=== PATIENT | female | born 1965 | race Caucasian/White ===

== ENCOUNTER 2019-08-31 12:36 | Emergency (ER) | payer OTHER, SELFPAY ==
--- NOTE | ~2019-08-31 | XR_ITS ---
EXAMINATION: XR chest 2V DATE: 08/31/2019 12:53 INDICATION: Cough and shortness of breath. TECHNIQUE: Frontal and lateral views of the chest were obtained. COMPARISON: Chest 2 views 05/20/2012 FINDINGS: The chest demonstrates clear lungs without pneumonia, pleural effusion, or pneumothorax. Th e heart size is normal. There is a lap band of the proximal stomach with normal phi angle. Surgical c lips in the right upper quadrant are likely from cholecystectomy. IMPRESSION: 1. No acute cardiopulmonary disease. Reviewed, dictated and finalized at location A. CLERK
[2019-08-31 12:47] VITALS: BP 128/89; PULSE 74; RESP 20; TEMP 36.9; O2SAT 100
--- NOTE | 2019-08-31 13:02 | ED.URI ---
HPI - URI/Sore Throat General Chief Complaint: Upper Respiratory Infection Stated Complaint: fever/cough/SOB History of Present Illness HPI Narrative: This is a 54-year-old female comes in complaining of having this chronic cough that is been going on for the past 3 weeks patient initially was thinking she had a sinus infection seen her primary care provider has been placed on Amoxil but the pain is a went away. 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 Related Data Allergies Allergy/AdvReac Type Severity Reaction Status Date / Time No Known Allergies Allergy Verified 08/31/19 12:38 Review of Systems Review of Systems: Narrative: CONSTITUTIONAL: De reports fever, chills, or sweats. EYES: Denies visual changes, redness, or discharge. ENT: Reports rhinorrhea, congestion, sore throat, or otalgia. CARDIOVASCULAR:Denies chest pain, palpitations, or edema. RESPIRATORY: Reports cough or dyspnea. GASTROINTESTINAL: Denies abdominal pain, nausea, vomiting, or diarrhea. GENITOURINARY: Denies dysuria or hematuria. SKIN:[Denies rash or itching. MUSCULOSKELETAL:Denies back pain, joint pain, or myalgia. NEUROLOGIC: Denies headache, numbness, or weakness. PSYCHIATRIC:Denies anxiety or depression PMFSH Social History Social History Smoking status: Never smoker Alcohol intake: current Comments At time as signature, I have reviewed and agree with nursing past medical, social, surgical and family history. Please see nursing chart for further information. There is no relevant family history pertinent to the presenting complaint. Exam Narrative: Exam Narrative: GENERAL:Well-appearing, well-nourished, and in no acute distress. HEAD:Normocephalic, atraumatic. EYES: PERRLA and EOMI. ENT: Nares clear, no rhinorrhea or epistaxis. Mucous membranes moist. tm bulging pharyngeal erythema NECK: Supple. CHEST: Clear to auscultation. No respiratory distress. HEART: Regular rate and rhythm. No murmur heard. Normal peripheral pulses. ABDOMEN: Soft, nontender, nondistended, normal active bowel sounds. EXTREMITIES: Normal range of motion. No edema. SKIN: Warm, dry, no rash. NEURO: No focal deficits. Alert and oriented x3. Course Vital Signs Vital signs: Vital Signs Temperature 98.4 F 08/31/19 12:47 Pulse Rate 74 08/31/19 12:47 Respiratory Rate 20 08/31/19 12:47 Blood Pressure 128/89 08/31/19 12:47 Pulse Oximetry 100 08/31/19 12:47 Temperature 98.4 F 08/31/19 12:47 Pulse Rate 74 08/31/19 12:47 Respiratory Rate 20 08/31/19 12:47 Blood Pressure 128/89 08/31/19 12:47 Pulse Oximetry 100 08/31/19 12:47 MDM - URI/Sore Throat Lab Data Labs: Influenza A Screen Negative Reference Range: Negative Influenza B Screen Negative Reference Range: Negative Discharge Plan Discharge Clinical Impression: Upper respiratory infection Patient Disposition: Home, Self-Care Condition: Stable Instructions: Antibiotic Form, Upper Respiratory Infection (ED), Acute Bronchitis (ED) Prescriptions: New benzonatate [Tessalon Perles] 100 mg capsule 100 mg PO BID PRN (Reason: cough) Qty: 20 RF: 0 albuterol sulfate 90 mcg/actuation HFA aerosol inhaler 1 inhalation INHALATION QID PRN (Reason: shortness of breath or wheezing) Qty: 8.5 RF: 0 No Action zolpidem [Ambien] 10 mg tablet 10 mg PO ONCE PRN (Reason: insomnia) Qty: 30 RF: 1 Follow-up/Referrals: Brandon Marte MD [Primary Care Provider] - Time of Disposition: 14:00 Discharge Date/Time: 08/31/19 14:02
== END 2019-08-31 14:02 | disposition home or self-care (01) ==
PROVIDERS: Emergency Provider Nurse Practitioner Family; PCP Family Medicine
DX: J06.9 Acute upper respiratory infection, unspecified (principal)
CPT/HCPCS: 71046; 87804; 99213; G0463

== ENCOUNTER 2022-03-11 14:18 | Emergency (ER) | payer OTHER, SELFPAY ==
--- NOTE | ~2022-03-11 | XR_ITS ---
EXAMINATION: [id number] INDICATION: Right-sided chest pain TECHNIQUE: A frontal view of the chest and 3 views of the right ribs were obtained. COMPARISON: 08/31/2019 FINDINGS: The lungs are free of acute opacities. No pleural effusion or pneumothorax. The cardiomedia stinal silhouette is normal. A gastric lap band is noted. Surgical clips in the right upper quadrant are likely from prior cholecystectomy. No displaced rib fracture is identified. IMPRESSION: 1. No acute cardiopulmonary abnormality or evidence of displaced rib fracture. Reviewed, dictated and finalized at location B.
--- NOTE | 2022-03-11 14:21 | ED.GENADULT ---
HPI - General Adult General Chief complaint: Back Pain/Injury Stated complaint: Rt side pain History of Present Illness HPI narrative: 56 y/o female. PMHx KOBY. Presents to [facility] today with acute complaints of RT lower chest wall/rib tenderness, worsening in the past 5 days. Client tells me she had been OOT on vacation, and was 'swimming a lot' prior to manifestation onset. She denies falls or direct chest wall trauma. Pain is described as 'sharp', and worse with movement, bending, laughing, or cough. -No fevers. No rash. -Denies dyspnea, radiation, palpitations, edema. -No hemoptysis. -Non-smoker. -Denies abdominal pain, N/V/D or other GI concerns. Mildly relieved w/home OTC remedies. No additional acute c/o upon PE. Related Data Allergies Allergy/AdvReac Type Severity Reaction Status Date / Time No Known Allergies Allergy Verified 03/11/22 14:20 Review of Systems Review of Systems: CONSTITUTIONAL: Denies fever, chills, sweats. EYES: Denies visual changes, redness, discharge. ENT: Denies rhinorrhea, congestion, sore throat, otalgia. CARDIOVASCULAR: Denies chest pain, palpitations, edema. RESPIRATORY: Denies dyspnea, wheezing, cough GASTROINTESTINAL: Denies abdominal pain, nausea, vomiting, diarrhea. GENITOURINARY: Denies dysuria, hematuria, abnormal discharge SKIN: Denies rash or itching. MUSCULOSKELETAL: RT lower chest wall/rib pain. Denies additional joint pain, or myalgia. NEUROLOGIC: Denies numbness, or focal weakness. PSYCHIATRIC: Denies anxiety or depression. [facility] Family History Family History Father Hypertension Family history of lung cancer, Onset Age: 75 Mother Hypertension Family history of thyroid disease Diabetes mellitus Family history of rheumatoid arthritis Grandparent Family history of malignant neoplasm of breast, Onset Age: 90 Carcinoma of colon Other Family history of arthritis Family history of malignant neoplasm Family history of premature coronary heart disease Social History Social History Alcohol intake: current Exam Narrative: GENERAL: This is a well-nourished, well-developed adult, in no apparent distress. HEAD: normocephalic. EYES: Sclera clear/white. EARS: External ears normal. NOSE: External nose normal. THROAT: Mucous membranes moist. NECK: Neck supple, non-tender. CARDIOVASCULAR: Regular rate and rhythm without murmurs, gallops, or rubs. No edema. RESPIRATORY: Clear to auscultation. Breath sounds equal bilaterally. No wheezes, rales, or rhonchi. With reproducible RT lower chest wall tenderness overlying intercostal spaces 9-12 respectively. No crepitus, no chest wall flailing or deformity. No vesicular lesions or rash. Chest wall rises symmetrically. GASTROINTESTINAL: Abdomen soft, non-tender, nondistended. Bowel sounds are active. No guarding. No signs of acute abdomen are appreciated. SKIN: warm, intact with no suspicious lesions or rash, good texture and turgor. NEURO: Alert, active, and age appropriate. No focal neurologic deficits. Course Course Level of Care: Express Care Visit Vital Signs Vital signs: Vital Signs Temperature 36.6 C 03/11/22 14:28 Pulse Rate 76 03/11/22 14:28 Respiratory Rate 18 03/11/22 14:28 Blood Pressure 134/68 03/11/22 14:28 Pulse Oximetry 99 03/11/22 14:28 Oxygen Delivery Room Air 03/11/22 14:28 Temperature 36.6 C 03/11/22 14:28 Pulse Rate 76 03/11/22 14:28 Respiratory Rate 18 03/11/22 14:28 Blood Pressure 134/68 03/11/22 14:28 Pulse Oximetry 99 03/11/22 14:28 Oxygen Delivery Room Air 03/11/22 14:28 Medical Decision Making [facility] Narrative Medical decision making narrative: -Reproducible RT lower chest wall tenderness: Suspect atraumatic costochondritis 2/2 recent reports of repetitive upper extremity movements w/swimming on v
[2022-03-11 14:28] VITALS: BP 134/68; PULSE 76; RESP 18; TEMP 36.6; O2SAT 99
== END 2022-03-11 14:56 | disposition home or self-care (01) ==
PROVIDERS: Emergency Provider Nurse Practitioner Adult Health; PCP Family Medicine
DX: M94.0 Chondrocostal junction syndrome [Tietze] (principal)
CPT/HCPCS: 71101; 99213; G0463

== ENCOUNTER 2022-04-17 09:44 | Outpatient (CLI) | payer OTHER, SELFPAY ==
--- NOTE | ~2022-04-17 | US_ITS ---
EXAMINATION: US venous doppler LE RT DATE: 04/17/2022 10:25 INDICATION: Right lower limb swelling TECHNIQUE: Martins scale images without and with compression and Doppler images of the right lower extre mity veins were obtained. COMPARISON: None FINDINGS: The right common femoral vein, profunda femoral vein, femoral vein, popliteal vein, peronea l trunk, posterior tibial veins, and greater saphenous vein are patent. No specific sonographic corre late is identified for the area of pain in the ankle. IMPRESSION: 1. Patent right lower extremity veins. No evidence of deep venous thrombosis. Reviewed, dictated and finalized at location B.
== END 2022-04-17 09:45 | disposition home or self-care (01) ==
PROVIDERS: PCP Physician Assistant; Visit Provider Physician Assistant
DX: M79.606 Pain in leg, unspecified (principal); M79.89 Other specified soft tissue disorders
CPT/HCPCS: 93971

== ENCOUNTER 2022-05-14 16:25 | Outpatient (CLI) | payer OTHER, SELFPAY ==
--- NOTE | ~2022-05-14 | CT_ITS ---
EXAMINATION: CT abdomen pelvis wo con DATE: 05/14/2022 16:49 INDICATION: Left flank pain since 4 days ago. History of multiple kidney stones and LAP-BAND surgery TECHNIQUE: Computed tomography (CT) of the abdomen and pelvis was performed without intravenous contr ast. Automated exposure control and iterative reconstruction technique were employed. Exam dose: 204 .22 mGy-cm total exam DLP. COMPARISON: 09/15/2015 CT abdomen pelvis FINDINGS: The lung bases are clear. Heart size is within normal limits. No pericardial or pleural eff usion. Lap band device is noted. Status post cholecystectomy. No bile duct or pancreatic duct dilatation. No hepatic, splenic, pancrea tic, and adrenal or renal space-occupying mass lesion is evident on this limited noncontrast examinat ion. There is an 8.4 x 13.8 mm calculus at the left ureteropelvic junction, with attenuation of 1175 Houns field units. There is mild left hydronephrosis. No other urinary tract calculus is noted. Status post hysterectomy. The urinary bladder is unremarkable. There is atherosclerotic calcification of the abdominal aorta and iliac arteries. No abdominal aortic aneurysm. Diverticulosis of the sigmoid and descending colon and splenic flexure; no CT evidence of diverticuli tis. No evidence of appendicitis. No bowel obstruction or intraperitoneal free air. Grade 1 anterolisthesis at L4-5 due to degenerative change at the apophyseal joints. No suspicious os teolytic or osteoblastic lesions are noted. IMPRESSION: 8.4 x 13.8 mm left ureterovesical junction calculus with mild left hydronephrosis Diverticulosis of left colon; no CT evidence of diverticulitis Status post cholecystectomy Status post hysterectomy Lap band Reviewed, dictated and finalized at Location A. Reviewed, dictated and finalized at location B. OR GROUP MANAGER
== END 2022-05-14 16:26 | disposition home or self-care (01) ==
PROVIDERS: PCP Internal Medicine; Visit Provider Clinical Nurse Specialist
DX: N20.0 Calculus of kidney (principal); Z90.49 Acquired absence of other specified parts of digestive tract; K57.30 Diverticulosis of large intestine without perforation or abscess without bleeding
CPT/HCPCS: 74176

== ENCOUNTER 2022-05-14 17:19 | Observation (INO) | payer OTHER, SELFPAY ==
[2022-05-14] VITALS (8 sets, daily range): BP systolic 119–155; BP diastolic 65–96; PULSE 56–78; RESP 11–34; TEMP 36.6; O2SAT 98–100; BMI 24.3
--- NOTE | ~2022-05-14 | XR_ITS ---
EXAMINATION: XR retrograde pyelo w/stent LT INDICATION: Left stent placement TECHNIQUE: 89 intraoperative fluoroscopic images are submitted for review. Total fluoroscopic time wa s 31.7 seconds. COMPARISON: KUB from yesterday FINDINGS: Retropyelogram demonstrates a stone at the left ureteropelvic junction. There is mild hydro nephrosis. A left internal ureteral stent is placed in expected position. Changes of gastric lap band surgery are noted. IMPRESSION: 1. Left-sided stone with placement of a left internal ureteral stent in expected position. Please ref er to procedure note for full details. Reviewed, dictated and finalized at location F. AND GROUNDS SUPERVISOR IMPRESSION: 1. Left-sided stone with placement of a left internal ureteral stent in expecte d position. Please refer to procedure note for full details.
--- NOTE | ~2022-05-14 | XR_ITS ---
EXAMINATION: XR abdomen/kub 1V INDICATION: Kidney stones TECHNIQUE: Supine views of the abdomen were obtained on 2 radiographs. COMPARISON: CT from today FINDINGS: A 1.4 cm stone projects in the expected location of the left ureteropelvic junction. A mode rate volume of colonic stool is present. Changes of gastric lap band surgery are noted. There are cho lecystectomy clips. There is elevation of the left hemidiaphragm. IMPRESSION: 1. 1.4 cm at the left ureteropelvic junction. Reviewed, dictated and finalized at location F. OR AGRICULTURAL ASSISTANT
[2022-05-14 17:42] LABS: Basophils Percent Auto 0.6 % (0.2-1.2); Eosinophils Absolute Auto 0.1 K/mm3 (0-0.3); Eosinophils Percent Auto 2.2 % (0-4.4); Hematocrit 41.9 % (37.0-47.0); Immature Granulocyte Absolute 0.02 K/mm3 (0.00-0.031); Immature Granulocyte Percent A 0.3 % (0-0.5); Lymphocytes Absolute Auto 2.09 K/mm3 (0.9-3.2); Lymphocytes Percent Auto 33.4 % (18.3-44.2); Mean Corpuscular HGB Conc 33.4 g/dl (32-36); Mean Corpuscular Hemoglobin 32.6 pg (26-34); Mean Corpuscular Volume 97.4 fl (80-100); Mean Platelet Volume 10.4 fl (7.4-10.4); Monocytes Absolute Auto 0.6 K/mm3 (0.1-0.6); Monocytes Percent Auto 9.7 % (2.6-8.5); Neutrophils Absolute Auto 3.4 K/mm3 (1.3-6.7); Neutrophils Percent Auto 53.8 % (45.5-73.1); Platelet Count Result 253 k/mm3 (150-375); Red Cell Distribution Width 11.6 % (11.5-14.5); White Blood Count 6.3 K/mm3 (4.5-10.0)
[2022-05-14 17:55] LABS: Alanine Aminotransferase 17 U/L (6-35); Albumin Level 4.4 g/dL (3.5-5.1); Alkaline Phosphatase 65 U/L (38-126); Anion Gap 10 mmol/L (8-16); Aspartate Amino Transferase 25 U/L (14-36); Bilirubin,Total 0.5 mg/dL (0.2-1.3); Blood Urea Nitrogen 16 mg/dL (7-17); Calcium 9.4 mg/dL (8.4-10.2); Carbon Dioxide 28 mmol/L (22-30); Chloride 101 mmol/L (98-107); Estimated CRCL calculation 73 ml/min; Estimated Glomerular Filt Rate > 60; Glucose 93 mg/dL (65-110); Potassium 4.1 mmol/L (3.4-5.0); Sodium 139 mmol/L (137-145)
[2022-05-14] MEDS: SODIUM CHLORIDE 0.9% IV 1,000 ML 999 ML IV CONT (20:38)
--- NOTE | 2022-05-14 21:28 | ED.GENADULT ---
HPI - General Adult General Chief complaint: Urogenital-Female Stated complaint: kidney stone Time Seen by Provider: 05/14/22 20:07 Source: RN notes reviewed History of Present Illness HPI narrative: Patient presents emergency department from home for left-sided flank and abdominal pain. Patient states symptoms again 4 days ago. The pain is located in the left side of the abdomen and radiates around to the left flank described as sharp and stabbing in nature. States has been associate with nausea. States that she went to her PCP today and had a CT scan that showed a kidney stone and was recommended come the ER for further evaluation. She denies any fevers or chills chest pain states she is not take any medication for the symptoms today Related Data Allergies Allergy/AdvReac Type Severity Reaction Status Date / Time No Known Allergies Allergy Verified 05/14/22 15:31 Review of Systems Review of Systems: Gen.: Denies fevers or chills ENT: Denies congestion Respiratory: Denies shortness of breath or cough CV: Denies chest pain or palpitations GI: See HPI denies burning, urgency, frequency or hematuria Musculoskeletal: Denies back pain or muscle pain Neuro: Denies numbness, tingling, weakness or focal weakness Skin: Denies rash Except as documented, all other systems reviewed and negative [facility] Past Medical History Medical History Renal stone Patient reports having lithotripsy procedures over 17 times Surgical History Surgical History H/O shoulder surgery (~06/11/21) Family History Family History Father Hypertension Family history of lung cancer, Onset Age: 75 Mother Hypertension Family history of thyroid disease Diabetes mellitus Family history of rheumatoid arthritis Grandparent Family history of malignant neoplasm of breast, Onset Age: 90 Carcinoma of colon Other Family history of arthritis Family history of malignant neoplasm Family history of premature coronary heart disease Social History Social History Social History: Caffeine-coffee Smoking status: Never smoker Alcohol intake: current Alcohol use details: social Exam Narrative: APPEARANCE: No acute distress, nontoxic, resting in bed HEENT: Normocephalic, atraumatic, OMM RESPIRATORY: No respiratory distress, clear to auscultation bilaterally with no rhonchi wheezing or rales CARDIOVASCULAR: RRR s murmur ABDOMINAL: Soft nondistended tender palpation left upper quadrant left lower quadrant no tenderness right upper quadrant right lower quadrant no rebound or guarding, left flank tenderness MUSCULOSKELETAl: Moves all extremities. No clubbing, cyanosis or edema. NEURO: Awake and alert. Following commands, speech normal, no focal deficits SKIN:: Warm, dry. Normal Color PSYCHIATRIC: Normal affect/mood Course Course Emergency Course: Reviewed outpatient CT scan from today showing a left 8 x 13 mm UPJ stone Discussed with urology Dr. Latif agrees with plan for Rocephin with admission with plan for stent tomorrow Discussed with Dr. Hannah agrees with admission Discussed with patient and family results of workup and diagnosis. Discussed need for admission. Patient and family understand and agree to current treatment plan Vital Signs Vital signs: Vital Signs Temperature 97.9 F 05/14/22 17:22 Pulse Rate 69 05/14/22 17:22 Respiratory Rate 16 05/14/22 17:22 Blood Pressure 150/83 H 05/14/22 17:22 Pulse Oximetry 100 05/14/22 17:22 Oxygen Delivery Room Air 05/14/22 17:22 Temperature 97.9 F 05/14/22 17:22 Pulse Rate 61 05/14/22 21:16 Respiratory Rate 16 05/14/22 21:16 Blood Pressure 119/65 05/14/22 21:16 Pulse Oximetry 100 05/14/22 21:16 Oxygen Delivery Room Air 05/14/22
[2022-05-14 21:38] LABS: Appearance Urine Clear (Clear); Bilirubin Urine Negative (Negative); Blood Urine 2+ (Negative); Color Urine Yellow (Yellow); Glucose Urine UA Negative (Negative); Ketones Urine 1+ mg/dL (Negative); Leukocyte Esterase Ur 2+ LEU/UL (Negative); Nitrate Urine Negative (Negative); Protein Urine Negative (Negative); Specific Grav Ur 1.025 (1.001-1.035); Urobilinogen Urine 0.2 mg/dL (<2.0)
[2022-05-14 21:39] LABS: SARS-CoV-2 RNA PCR Negative
[2022-05-14 21:41] LABS: Mucus Urine Rare /lpf; RBC Urine >75 /hpf (0-2); Squamous Epithelial Cell Urine Rare /hpf (Few); WBC Urine 31-50 /hpf
[2022-05-14 21:42] LABS: Add Urine Microscopic? YES
--- NOTE | 2022-05-14 22:07 | PM.IMHP ---
H&P: HPI History of Present Illness Date/Time: 05/14/22 22:07 Chief Complaint: Left flank pain, abdominal pain, dysuria Narrative: Patient is a 57-year-old female with past medical history recurrent uric acid kidney stones and insomnia presents to ED with complaints of left-sided flank pain and abdominal pain. Symptom onset was 4 days ago. Patient states she has recurrent kidney stones and has had lithotripsy 17x. She previously was following at [facility] and kidney stones are found to be uric acid stones. Patient had been on allopurinol in the past but no longer recommended. She has been dealing with kidney stones for many years and over last couple months patient has had small kidney stones with past without issues. Today she saw her PCP who has ordered a CT scan finding a 1.4cm kidney stone in left UVJ. She was given Rx for nitrofurantoin with dysuria. Because of the size of kidney stone she was advised to go to the ED for further evaluation. In the ED: Patient's labs are stable, patient was given IV Rocephin antibiotic. Urology Dr. Tee was consulted and plan will be cystoscopy with stent placement tomorrow and possible stone removal/lithotripsy. Patient admitted for observation for left-sided nephrolithiasis. Review of Systems Review of Systems: Constitutional: No Fever, No Chills, No Night Sweats, No Fatigue, No Malaise ENT/Mouth: No Hearing Changes, No Ear Pain, No Nasal Congestion, No Sinus Pain, No Hoarseness, No sore throat, No Rhinorrhea, No Swallowing Difficulty Eyes: No Eye Pain, No Redness, No Vision Changes Cardiovascular: No Chest Pain, No Palpitations, No Dyspnea on Exertion, No Orthopnea, No Claudication, No Edema Respiratory: No Cough, No Sputum, No Wheezing, No Shortness of Breath Gastrointestinal: No Nausea, No Vomiting, No Diarrhea, No Constipation, No Heartburn, No Hematochezia, No Melena. Endorses abdominal pain and back pain Genitourinary: Endorses dysuria, pain on urination,fullness Musculoskeletal: No Arthralgias, No Myalgias, No Joint Swelling, No Joint Stiffness, No Back Pain Skin: No Skin Lesions, No Pruritis, No Hair Changes Neuro: No Weakness, No Numbness, No Paresthesias, No Loss of Consciousness, No Syncope, No Dizziness, No Headache Psych: No Anxiety/Panic, No Depression, No Insomnia Heme: No Bruising, No Bleeding Lymph: No Adenopathy Endocrine: No Polyuria, No Polydipsia, No Temperature Intolerance [facility] Past Medical History Medical History (Updated 05/14/22 @ 22:24 by Rigo Hannah DO) Adjustment disorder with anxiety Insomnia Renal stone Patient reports having lithotripsy procedures over 17 times. history of uric stones Surgical History Surgical History H/O shoulder surgery (~06/11/21) History of cholecystectomy History of hysterectomy History of laparoscopic adjustable gastric banding Family History Family History Father Hypertension Family history of lung cancer, Onset Age: 75 Mother Hypertension Family history of thyroid disease Diabetes mellitus Family history of rheumatoid arthritis Grandparent Family history of malignant neoplasm of breast, Onset Age: 90 Carcinoma of colon Other Family history of arthritis Family history of malignant neoplasm Family history of premature coronary heart disease Social History Social History Social History: Caffeine-coffee Smoking status: Never smoker Alcohol intake: current Alcohol use details: social Meds Home Medications and Allergies Home Medications Medication Instructions Recorded Confirmed Type fluoxetine 10 mg capsule 10 mg PO DAILY #90 caps 08/18/21 04/16/22 Rx trazodone 50 mg tablet 150 mg PO DAILY #90 tabs 11/18/21 04/16/22 Rx zolpidem 10 mg tablet (Ambien) 10 mg PO .qhs PRN insomnia #90 tabs 04/16/22
[2022-05-14] MEDS: MORPHINE SULFATE (*CRX) 4 MG/ML INJ IV PUSH (22:25)
[2022-05-14] MEDS: ONDANSETRON INJ 4 MG/2 ML VIAL IV PUSH (22:25)
--- NOTE | 2022-05-14 23:25 | ADMGEN ---
This patient, Carmen Scott, was admitted to Medical Room 261-01. Patient/family oriented to hospital policies and general routines including ID bracelet, bed and alarms, visiting hours, pain management, procedures, bathroom and other care routines, personal items, smoking policy, room service/diet, and visiting hours. Information on how to activate the Rapid Response Team has been discussed. Patient/Family are encouraged to report perceived risks to care and to ask questions if they do not understand what they are told or what they should do.
[2022-05-14] MEDS: SODIUM CHLORIDE 0.9% IV 1,000 ML 125 ML IV CONT (23:28)
[2022-05-14] MEDS: ZOLPIDEM TARTRATE (*CRX) 5 MG TABLET PO (23:49)
[2022-05-14] MEDS: traZODone HCL 50 MG TABLET 150 MG PO (23:50)
[2022-05-15] VITALS (11 sets, daily range): BP systolic 113–156; BP diastolic 56–80; PULSE 52–73; RESP 8–18; TEMP 36.2–36.6; O2SAT 94–98
[2022-05-15] MEDS: MORPHINE SULFATE (*CRX) 4 MG/ML INJ IV PUSH (05:31)
[2022-05-15 05:56] LABS: INR 1.1; Prothrombin Time 13.6 Seconds (11.1-14.7)
[2022-05-15 06:22] LABS: Basophils Percent Auto 0.8 % (0.2-1.2); Eosinophils Absolute Auto 0.1 K/mm3 (0-0.3); Eosinophils Percent Auto 2.7 % (0-4.4); Hematocrit 35.9 % (37.0-47.0); Hemoglobin 12.1 g/dL (12.0-15.0); Immature Granulocyte Absolute 0.02 K/mm3 (0.00-0.031); Immature Granulocyte Percent A 0.4 % (0-0.5); Lymphocytes Absolute Auto 1.67 K/mm3 (0.9-3.2); Lymphocytes Percent Auto 34.4 % (18.3-44.2); Mean Corpuscular HGB Conc 33.7 g/dl (32-36); Mean Corpuscular Hemoglobin 32.6 pg (26-34); Mean Corpuscular Volume 96.8 fl (80-100); Monocytes Absolute Auto 0.5 K/mm3 (0.1-0.6); Monocytes Percent Auto 9.9 % (2.6-8.5); Neutrophils Absolute Auto 2.5 K/mm3 (1.3-6.7); Neutrophils Percent Auto 51.8 % (45.5-73.1); Platelet Count Result 208 k/mm3 (150-375); Red Blood Count 3.71 M/mm3 (4.2-5.4); Red Cell Distribution Width 11.6 % (11.5-14.5); White Blood Count 4.9 K/mm3 (4.5-10.0)
[2022-05-15 06:50] LABS: Alanine Aminotransferase 14 U/L (6-35); Albumin Level 3.4 g/dL (3.5-5.1); Alkaline Phosphatase 51 U/L (38-126); Anion Gap 3 mmol/L (8-16); Aspartate Amino Transferase 24 U/L (14-36); Bilirubin,Total 0.5 mg/dL (0.2-1.3); Blood Urea Nitrogen 12 mg/dL (7-17); Calcium 8.4 mg/dL (8.4-10.2); Carbon Dioxide 27 mmol/L (22-30); Chloride 108 mmol/L (98-107); Estimated CRCL calculation 73 ml/min; Estimated Glomerular Filt Rate > 60; Glucose 92 mg/dL (65-110); Potassium 4.1 mmol/L (3.4-5.0); Sodium 138 mmol/L (137-145)
[2022-05-15] MEDS: SODIUM CHLORIDE 0.9% IV 1,000 ML 125 ML IV CONT ×2 (08:13→20:44)
[2022-05-15] MEDS: ONDANSETRON INJ 4 MG/2 ML VIAL IV PUSH ×2 (08:13→18:48)
[2022-05-15] MEDS: ACETAMINOPHEN 325 MG TABLET 650 MG PO ×2 (08:14→18:48)
--- NOTE | 2022-05-15 08:44 | PM.IMPN ---
Progress Note: A&P Assessment and Plan (1) Kidney stone on left side: Code(s): N20.0 - Calculus of kidney Status: Acute Assessment and Plan: 1.4cm left stone with mild left hydronephrosis. Hx 17 urology procedures in past. States has had ureteral stents in the past. No stones last 6 years. States inital stones found to be uric acid, but subsequent eval other etiology - no longer on allopurinol. Current renal function wdl. - Urology has seen pt. this am, procedure this afternoon. Appreciate recs. - NPO last night, IVF with 125 ml/hr nacl. - Pain control with tylenol, norco, and/or morphine prn. - Urine with +leuk/wbc - on rocephin which will continue. Culture pending. (2) Insomnia: Qualifiers: Insomnia type: unspecified Qualified Code(s): G47.00 - Insomnia, unspecified Code(s): G47.00 - Insomnia, unspecified Status: Acute Assessment and Plan: Home trazodone to continue. (3) Nausea: Code(s): R11.0 - Nausea Status: Acute Assessment and Plan: - Cont. zofran. (4) Headache: Code(s): R51.9 - Headache, unspecified Status: Acute Assessment and Plan: - Cont. acetaminophen, received dose this am. Time Spent With Patient Time with patient: 15 - 25 minutes Subjective Date/time seen: 05/15/22 08:20 Interval history: Patient states pain left flank this am, headache, and nausea w/o vomiting, but is having dry heaves. Review of Systems Constitutional: Constitutional: Reports no additional constitutional complaints Cardiovascular: Cardiovascular: Reports no additional cardiovascular complaints Respiratory: Respiratory: Reports no additional respiratory complaints Gastrointestinal: Gastrointestinal: Reports nausea Musculoskeletal: Musculoskeletal: Reports no additional musculoskeletal complaints Neurologic: Reports system reviewed and no additional complaints, except as documented Exam Const: General: uncomfortable Other: Occasional dry heaves Eyes: Sclera: sclerae normal Neck: Neck: supple Resp: Effort & Inspection: normal respiratory effort Auscultation: clear to auscultation bilaterally Cardio: Rate: regular rate Rhythm: regular rhythm Skin: General skin exam: normal color and no rashes or lesions noted Neuro: Speech: normal speech Extrem: General: normal to inspection Psych: Mental Status: mental status grossly normal Affect: normal affect Objective Data Vital Signs Vital Signs: Vital Signs - 24 hr 05/14/22 17:22 05/14/22 20:34 05/14/22 20:45 Temperature 97.9 F Pulse Rate 69 64 56 L Respiratory Rate 16 11 L 12 Blood Pressure 150/83 H Pulse Oximetry 100 100 100 Oxygen Delivery Room Air 05/14/22 20:46 05/14/22 21:01 05/14/22 21:16 Temperature Pulse Rate 68 58 L 61 Respiratory Rate 34 H 14 16 Blood Pressure 132/74 124/75 119/65 Pulse Oximetry 99 100 100 Oxygen Delivery 05/14/22 23:55 05/14/22 23:37 05/15/22 07:43 Temperature 97.8 F 97.8 F Pulse Rate 78 58 L 60 Respiratory Rate 18 16 16 Blood Pressure 130/80 155/96 H 113/66 Pulse Oximetry 98 100 97 Oxygen Delivery Intake/Output Intake/Output: Intake & Output 05/12/22 05/13/22 05/14/22 05/15/22 23:59 23:59 23:59 23:59 Intake Total 1150 1300 Output Total 400 Balance 1150 900 Meds/Results Medications: Active Medications Generic Name Dose Route Start Last Admin Trade Name Freq PRN Reason Stop Dose Admin Acetaminophen 650 mg 05/14/22 22:11 05/15/22 08:14 Acetaminophen 325 Mg Tablet PO 650 mg Q4H PRN Administration Mild Pain (1-3) or Fever Hydrocodone Bitart/Acetaminophen 1 tab 05/14/22 22:11 Hydrocodone/Acetaminophen (*Crx) 5-325 Mg Tablet PO Q4H PRN Moderate Pain (4-6) Al Hydrox/Mg Hydrox/Simethicone 30 ml 05/14/22 22:11 Mag Hydrox/Al Hydrox/Simeth 30 Ml Udc PO QID PRN Dyspepsia Ceftriaxone Sodium/Dextrose 1 gm in 50 mls @ 100 mls/h
--- NOTE | 2022-05-15 09:14 | WPDURCON ---
Assessment and Plan Assessment and plan (1) Left ureteral stone: Code(s): N20.1 - Calculus of ureter Status: Acute Assessment and Plan: Cystoscopy with left ureteral stent placement today. Left ESWL in the future, once her infection has been thoroughly treated Urology Consult Note HPI Date Seen: 05/15/22 Requesting Physician: Carline Griffin PA-C Primary Care Provider: Rudolph Llanes DO Consult Narrative Narrative: Carmen Scott is a 57 year old female Wary well known to me with a history of uric a urinary tract infection and recurrent urolithiasis in the past. I have not seen her for several years but she was admitted through the emergency department with a one-week history of progressively severe left flank pain without fevers chills nausea vomiting or gross hematuria. Imaging demonstrates an obstructing 13 mm calcified left proximal ureteral stone. Her urine shows some white blood cells and leukocyte esterase suggesting a possible infection. In light of that elected to admit for hydration analgesics with plans for left ureteral stent placement now in left ESWL in the future. It is risk of ureteral stent placement including persistent or worsening infection, irritable voiding, hematuria and ureteral injury. Review of Systems Cardiovascular: Cardiovascular: Denies chest pain, Denies lightheadedness, Denies palpitations and Denies dyspnea Respiratory: Respiratory: Denies dyspnea Gastrointestinal: Gastrointestinal: Denies diarrhea, Denies nausea and Denies vomiting Genitourinary: Genitourinary: Denies hematuria and Denies dysuria Endocrine: Endocrine: Denies palpitations PMFSH Past Medical History Medical History (Updated 05/15/22 @ 09:16 by Bill Pal MD) Adjustment disorder with anxiety Insomnia Renal stone Patient reports having lithotripsy procedures over 17 times. history of uric stones Surgical History Surgical History H/O shoulder surgery (~06/11/21) History of cholecystectomy History of hysterectomy History of laparoscopic adjustable gastric banding Family History Family History Father Hypertension Family history of lung cancer, Onset Age: 75 Mother Hypertension Family history of thyroid disease Diabetes mellitus Family history of rheumatoid arthritis Grandparent Family history of malignant neoplasm of breast, Onset Age: 90 Carcinoma of colon Other Family history of arthritis Family history of malignant neoplasm Family history of premature coronary heart disease Social History Social History Social History: Caffeine-coffee Smoking status: Never smoker Alcohol intake: current Drinks per week: 1 Alcohol use details: social Substance use: never Lack of Transportation: No Lack of Food: Never True Current Housing: I Have Housing Concerned About Future Housing: No Difficulty Paying Gas/Electric Bills: No Difficulty Paying for Meds: No Currently Unemployed: No Education: Associate Degree Difficulty w/ Childcare or Family Care: No Spiritual care concerns: No Meds Home Medications and Allergies Home Medications Medication Instructions Recorded Confirmed Type fluoxetine 10 mg capsule 10 mg PO DAILY #90 caps 08/18/21 05/14/22 Rx trazodone 50 mg tablet 150 mg PO DAILY #90 tabs 11/18/21 05/14/22 Rx zolpidem 10 mg tablet (Ambien) 10 mg PO .qhs PRN insomnia #90 tabs 04/16/22 05/14/22 Rx nitrofurantoin 100 mg PO Q12H 5 days #10 caps 05/14/22 05/14/22 Rx monohydrate/macrocrystals 100 mg capsule (Macrobid) Allergies Allergy/AdvReac Type Severity Reaction Status Date / Time No Known Allergies Allergy Verified 05/14/22 15:31 Vital Signs Vital Signs - 24 hr 05/14/22 17:22 05/14/22 20:34 05/14/22 20:45 Temp
--- NOTE | 2022-05-15 09:18 | WPDHPUPDATE1 ---
History and Physical Update Update Date/Time: 05/15/22 09:18 History and Physical has been reviewed, including an updated exam of the patient. There are NO changes in the patient's condition. Risks, benefits, and alternatives have been discussed and questions answered. Patient agrees to proceed with procedure.
--- NOTE | 2022-05-15 10:45 | WPDHPUPDATE1 ---
History and Physical Update Update Date/Time: 05/15/22 10:45 History and Physical has been reviewed, including an updated exam of the patient. There are NO changes in the patient's condition. Risks, benefits, and alternatives have been discussed and questions answered. Patient agrees to proceed with procedure.
--- NOTE | 2022-05-15 11:06 | WPDANESEPPF ---
Anes - Initial Pre Proc Eval Procedure: Operation Date: 05/15/22 14:30 Proposed Procedures p Cystoscopy, Left Stent Placement - Bill Pal MD Date/Time: 05/15/22 11:06 Surgeon: Carline Griffin PA-C Pre Op Diagnosis: Left kidney stone, UTI Patient Data Age: 57 Gender: F Height: 1.7 m Weight: 70.4 kg Last Vital Signs Temp 36.6 C 05/15/22 07:43 Pulse 60 05/15/22 07:43 Resp 16 05/15/22 07:43 BP 113/66 05/15/22 07:43 Pulse Ox 97 05/15/22 07:43 O2 Del Method Room Air 05/14/22 17:22 Allergies Allergy/AdvReac Type Severity Reaction Status Date / Time No Known Allergies Allergy Verified 05/14/22 15:31 Home Medications Medication Instructions Recorded Confirmed Type fluoxetine 10 mg capsule 10 mg PO DAILY #90 caps 08/18/21 05/14/22 Rx trazodone 50 mg tablet 150 mg PO DAILY #90 tabs 11/18/21 05/14/22 Rx zolpidem 10 mg tablet (Ambien) 10 mg PO .qhs PRN insomnia #90 tabs 04/16/22 05/14/22 Rx nitrofurantoin 100 mg PO Q12H 5 days #10 caps 05/14/22 05/14/22 Rx monohydrate/macrocrystals 100 mg capsule (Macrobid) Laboratory Tests 05/14/22 05/14/22 05/14/22 17:29 17:29 20:44 WBC 6.3 K/mm3 K/mm3 (4.5-10.0) RBC 4.30 M/mm3 M/mm3 (4.2-5.4) Hgb 14.0 g/dL g/dL (12.0-15.0) Hct 41.9 % % (37.0-47.0) MCV 97.4 fl fl (80-100) MCH 32.6 pg pg (26-34) MCHC 33.4 g/dl g/dl (32-36) RDW 11.6 % % (11.5-14.5) Plt Count 253 k/mm3 k/mm3 (150-375) MPV 10.4 fl fl (7.4-10.4) Immature Gran % (Auto) 0.3 % % (0-0.5) Neut % (Auto) 53.8 % % (45.5-73.1) Lymph % (Auto) 33.4 % % (18.3-44.2) [place] % (Auto) 9.7 % H % (2.6-8.5) Eos % (Auto) 2.2 % % (0-4.4) Baso % (Auto) 0.6 % % (0.2-1.2) Lymph # (Auto) 2.09 K/mm3 K/mm3 (0.9-3.2) [place] # (Auto) 0.6 K/mm3 K/mm3 (0.1-0.6) Eos # (Auto) 0.1 K/mm3 K/mm3 (0-0.3) Baso # (Auto) 0.0 K/mm3 K/mm3 (0.0-0.1) Abs Immat Gran (auto) 0.02 K/mm3 K/mm3 (0.00-0.031) Absolute Neuts (auto) 3.4 K/mm3 K/mm3 (1.3-6.7) Absolute Nucleated RBC 0.0 K/mm3 K/mm3 (0.0-0.012) Nucleated RBC % 0.0 % % (0.0-0.2) PT INR Sodium 139 mmol/L mmol/L (137-145) Potassium 4.1 mmol/L mmol/L (3.4-5.0) Chloride 101 mmol/L mmol/L (98-107) Carbon Dioxide 28 mmol/L mmol/L (22-30) Anion Gap 10 mmol/L mmol/L (8-16) BUN 16 mg/dL mg/dL (7-17) Creatinine 0.70 mg/dL mg/dL (0.7-1.0) Estim Creat Clear Calc 73 ml/min ml/min Estimated GFR > 60 (59 - ) Glucose 93 mg/dL mg/dL (65-110) Calcium 9.4 mg/dL mg/dL (8.4-10.2) Total Bilirubin 0.5 mg/dL mg/dL (0.2-1.3) AST 25 U/L U/L (14-36) ALT 17 U/L U/L (6-35) Alkaline Phosphatase 65 U/L U/L (38-126) Total Protein 8.0 g/dL g/dL (6.3-8.2) Albumin 4.4 g/dL g/dL (3.5-5.1) Urine Color Urine Appearance Urine pH Ur Specific [place] Urine Protein Urine Glucose (UA) Urine Ketones Ur Blood (Man) Urine Nitrate Urine Bilirubin Urine Urobilinogen Leukocyte Esterase Rfl Urine RBC Urine WBC Ur Squamous Epith Cells Urine Mucus SARS-CoV-2 RNA (RT-PCR) Negative 05/14/22 05/15/22 05/15/22 21:33 05:13 05:13 WBC 4.9 K/mm3 K/mm3 (4.5-10.0) RBC 3.71 M/mm3 L M/mm3 (4.2-5.4) Hgb 12.1 g/dL g/dL (12.0-15.0) Hct 35.9 % L % (37.0-47.0) MCV 96.8 fl fl (80-100) MCH 32.6 pg pg (26-34) MCHC 33.7 g/dl g/dl
[2022-05-15] MEDS: LACTATED RINGERS 1,000 ML 30 ML IV CONT (11:09)
--- NOTE | 2022-05-15 11:40 | W.PM.PROC2 ---
Procedure Note - Detailed Date of Procedure 05/15/22 Pre-op Diagnosis Left ureteral stone Post-op Diagnosis Same Procedure Performed Cystoscopy, left retrograde pyelogram, left ureteral stent placement Surgeon Fritz Tee MD Anesthesia MAC Findings Large left UPJ stone. Pushed into the kidney. Stent placed Description of Procedure She has correctly identified. Informed consent obtained. She from the operating room. She was given MAC anesthesia. She was placed in dorsal lithotomy position. She was prepped and draped in a sterile fashion. Time-out performed. Cystoscopy revealed a normal-appearing bladder. On instructor psychiatric aide radiograph I could see a large left UPJ stone. I did a gentle retrograde pyelogram on the left. It outlined the stone in the proximal ureter. There was mild hydronephrosis proximal to the stone. I placed a guidewire to the kidney. While doing so the stone pushed into the ureter. I then placed a 4.8 variable length stent. Proximal coil in the renal pelvis. Distal coil the bladder. The bladder was drained. She was awakened transferred to PACU in stable condition. Estimated Blood Loss 0 Urine Output 400 Complications No immediate complications Condition Stable Disposition PACU
[2022-05-15] MEDS: PHENAZOPYRIDINE HCL 100 MG TABLET 200 MG PO ×2 (14:42→18:45)
[2022-05-15] MEDS: traZODone HCL 50 MG TABLET 150 MG PO (20:43)
[2022-05-15] MEDS: ZOLPIDEM TARTRATE (*CRX) 5 MG TABLET 10 MG PO (20:49)
[2022-05-15] MEDS: HYDROcodone/acetaminophen (*CRX) 5-325 MG TABLET 1 TAB PO (20:49)
[2022-05-16] VITALS: BP 123/64; PULSE 97; RESP 18; TEMP 36.1; O2SAT 74
[2022-05-16 05:03] VITALS: BP 123/77; PULSE 70; RESP 20; TEMP 36.2; O2SAT 98
[2022-05-16] MEDS: HYDROcodone/acetaminophen (*CRX) 5-325 MG TABLET 1 TAB PO (05:11)
[2022-05-16 05:51] LABS: Hematocrit 39.4 % (37.0-47.0); Hemoglobin 13.1 g/dL (12.0-15.0); Mean Corpuscular HGB Conc 33.2 g/dl (32-36); Mean Corpuscular Hemoglobin 32.8 pg (26-34); Mean Corpuscular Volume 98.5 fl (80-100); Mean Platelet Volume 11.1 fl (7.4-10.4); Platelet Count Result 233 k/mm3 (150-375); Red Cell Distribution Width 11.3 % (11.5-14.5); White Blood Count 5.7 K/mm3 (4.5-10.0)
[2022-05-16 06:02] LABS: Alanine Aminotransferase 14 U/L (6-35); Albumin Level 3.7 g/dL (3.5-5.1); Alkaline Phosphatase 51 U/L (38-126); Anion Gap 10 mmol/L (8-16); Aspartate Amino Transferase 22 U/L (14-36); Bilirubin,Total 0.4 mg/dL (0.2-1.3); Blood Urea Nitrogen 6 mg/dL (7-17); Calcium 8.9 mg/dL (8.4-10.2); Carbon Dioxide 26 mmol/L (22-30); Chloride 105 mmol/L (98-107); Estimated CRCL calculation 73 ml/min; Estimated Glomerular Filt Rate > 60; Glucose 102 mg/dL (65-110); Potassium 3.6 mmol/L (3.4-5.0); Sodium 141 mmol/L (137-145)
[2022-05-16] MEDS: PHENAZOPYRIDINE HCL 100 MG TABLET 200 MG PO ×2 (08:34→12:56)
[2022-05-16] MEDS: FLUoxetine HCL 10 MG CAPSULE PO (08:34)
--- NOTE | 2022-05-16 09:10 | WPDANESPN ---
Anes - Prog Note Post-Op Date/Time: 05/16/22 09:10 Cardiovascular status: normal Respiratory status: normal Airway patency: baseline Mental status: baseline Post-Op hydration status: normal Vital Signs: Last Vital Signs Temp 36.2 C L 05/16/22 05:03 Pulse 70 05/16/22 05:03 Resp 20 05/16/22 05:03 BP 123/77 05/16/22 05:03 Pulse Ox 98 05/16/22 05:03 O2 Del Method Room Air 05/15/22 20:00 Pain Score (VAS): 09/04 I/O: Intake & Output 05/15/22 05/16/22 05/16/22 23:59 07:59 15:59 Intake Total 1170 290 Output Total 600 200 Balance 570 90 Laboratory Tests 05/16/22 04:47 05/16/22 04:47 05/16/22 05/16/22 04:47 04:47 WBC 5.7 RBC 4.00 L Hgb 13.1 Hct 39.4 MCV 98.5 MCH 32.8 MCHC 33.2 RDW 11.3 L Plt Count 233 MPV 11.1 H Sodium 141 Potassium 3.6 Chloride 105 Carbon Dioxide 26 Anion Gap 10 BUN 6 L D Creatinine 0.70 Estim Creat Clear Calc 73 Estimated GFR > 60 Glucose 102 Calcium 8.9 Total Bilirubin 0.4 AST 22 ALT 14 Alkaline Phosphatase 51 Total Protein 6.0 L Albumin 3.7 Post-procedural complaints: nausea (After surgery, resolved this morning ) Patient Feedback: Patient satisfied with anesthetic care.
--- NOTE | 2022-05-16 10:15 | PM.DS ---
DS: Admitting Diagnosis Discharge Date 05/16/22 1015 Admitting Diagnosis renal caliculi and UTI DS: Discharge Diagnosis Discharge Diagnosis (1) Kidney stone on left side: Code(s): N20.0 - Calculus of kidney Status: Acute Assessment and Plan: 1.4cm left stone with mild left hydronephrosis. Hx 17 urology procedures in past. States has had ureteral stents in the past. No stones last 6 years. States inital stones found to be uric acid, but subsequent eval other etiology - no longer on allopurinol. Current renal function wdl. - Urology has seen pt. this am, procedure this afternoon. Appreciate recs. - NPO last night, IVF with 125 ml/hr nacl. - Pain control with tylenol, norco, and/or morphine prn. - Urine with +leuk/wbc - on rocephin which will continue. Culture pending. (2) Insomnia: Qualifiers: Insomnia type: unspecified Qualified Code(s): G47.00 - Insomnia, unspecified Code(s): G47.00 - Insomnia, unspecified Status: Acute Assessment and Plan: Home trazodone to continue. (3) Nausea: Code(s): R11.0 - Nausea Status: Acute Assessment and Plan: - Cont. zofran. (4) Headache: Code(s): R51.9 - Headache, unspecified Status: Acute Assessment and Plan: - Cont. acetaminophen, received dose this am. DS: Summary Hospital Course Hospital Course: Patient is a 57-year-old female with a past medical history of kidney stones, anxiety, cholecystectomy, lithotripsy who presented to the ED with complaints of left-sided flank pain and abdominal pain. Patient stated that her symptoms persisted for 4 days. She does have recurrent kidney stones and has had a lithotripsy 17 times. Urology was consulted upon arrival. Patient was taken for a cystoscopy and stent was placed. Patient has been able to urinate. Labs have remained stable. Urine was collected and was sent for culture however still pending. UA did appear infectious. Currently patient is ready to go she feels pretty good. She also states that she has urinating okay. labs and vital signs are stable remained stable at this time. Urology has been contacted and is okay with discharge at this time as well. Patient denies any chest pain, shortness a breath, nausea, vomiting, diarrhea, constipation, weakness or fatigue. Status at Discharge Functional status at discharge: independent ambulation Overall status at discharge: patient is progressing back to baseline Time Spent with Patient Time attestation: Total time spent providing and/or coordinating discharge services: 37 minutes Time spent: Greater than 30 minutes Specific discharge activities: Diagnostic testing, chart review, developing a treatment plan, education, care coordination documentation, physical exam, result review Exam Const: General: cooperative, healthy appearing, no acute distress, well developed, alert, awake and well nourished Nutritional Appearance: well nourished Orientation/consciousness: patient oriented x3 Limitations: no limitations HENMT: Head: normal to inspection Ears: hearing grossly normal bilaterally Face/Nose/Sinus: Normal external nose present Mouth: Yes Normal oral and palatal mucosa present, Yes lip normal and Yes tongue normal Teeth and gingiva: abnormal tooth and associated gingiva and poor dentition Eyes: General: appearance normal, both eyes and all related structures Neck: Neck: normal visual inspection, full ROM, trachea midline and supple Chest: Chest palpation & inspection: normal inspection of the chest Resp: Effort & Inspection: normal respiratory effort and able to speak in complete sentences Auscultation: clear to auscultation bilaterally Cardio: Jugular venous distension: no JVD Rate: regular rate Rhythm: regular rhythm Heart sounds: S1 normal heart sound present and S2 normal heart sound present Peripheral pulses: Peripheral pulses 2+ throughout GI: Inspection: normal to inspectio
--- NOTE | 2022-05-16 12:19 | WPDUROPN2 ---
Progress Note: A&P Assessment and Plan (1) Left ureteral stone: Code(s): N20.1 - Calculus of ureter Status: Acute Plan large left ureteral stone status post ureteral stent placement - POD #1 - discharge planning today. Patient should be sent with oxybutynin 5mg t.i.d. p.r.n. for bladder spasms given her discomfort from the stent - complete course of Macrobid that she has at home - follow-up for outpatient ESWL procedure Subjective Subjective Date/Time Seen: 05/16/22 12:19 No overnight events. Patient feeling well. She wants to go home Exam Narrative: the patient is awake alert. She is no acute distress. Her breathing is unlabored. Her abdomen is soft Objective Data Vital Signs Vital Signs: Vital Signs - 24 hr 05/15/22 12:20 05/15/22 12:44 05/15/22 13:34 Temperature 36.3 C L Pulse Rate 54 L 64 52 L Respiratory Rate 8 L 12 17 Blood Pressure 114/61 116/62 156/65 H Pulse Oximetry 95 95 98 Oxygen Delivery Room Air Room Air 05/15/22 14:10 05/15/22 21:36 05/15/22 20:00 Temperature 36.2 C L Pulse Rate 64 64 64 Respiratory Rate 17 18 18 Blood Pressure 121/56 L 139/80 Pulse Oximetry 98 97 97 Oxygen Delivery Room Air 05/16/22 00:00 05/16/22 05:03 05/16/22 08:00 Temperature 36.1 C L 36.2 C L Pulse Rate 97 70 Respiratory Rate 18 20 Blood Pressure 123/64 123/77 Pulse Oximetry 74 L 98 Oxygen Delivery Room Air Intake/Output Intake/Output: Intake & Output 05/13/22 05/14/22 05/15/22 05/16/22 23:59 23:59 23:59 23:59 Intake Total 1150 3170 410 Output Total 1400 200 Balance 1150 1770 210 Meds/Results Medications: Active Medications Generic Name Dose Route Start Last Admin Trade Name Freq PRN Reason Stop Dose Admin Acetaminophen 650 mg 05/14/22 22:11 05/15/22 18:48 Acetaminophen 325 Mg Tablet PO 650 mg Q4H PRN Administration Mild Pain (1-3) or Fever Hydrocodone Bitart/Acetaminophen 1 tab 05/14/22 22:11 05/16/22 05:11 Hydrocodone/Acetaminophen (*Crx) 5-325 Mg Tablet PO 1 tab Q4H PRN Administration Moderate Pain (4-6) Al Hydrox/Mg Hydrox/Simethicone 30 ml 05/14/22 22:11 Mag Hydrox/Al Hydrox/Simeth 30 Ml Udc PO QID PRN Dyspepsia Fluoxetine HCl 10 mg 05/16/22 09:00 05/16/22 08:34 Fluoxetine Hcl 10 Mg Capsule PO 10 mg DAILY CHARLENE Administration Ceftriaxone Sodium/Dextrose 1 gm in 50 mls @ 100 mls/hr 05/15/22 21:00 05/15/22 21:15 Rocephin 1 Gm/D5w 50 Ml IVPB Infused Q24H CHARLENE Infusion Sodium Chloride 1,000 mls @ 125 mls/hr 05/14/22 21:55 05/15/22 20:44 Normal Saline Iv IV CONT 125 mls/hr .Q8H CHARLENE Administration Magnesium Hydroxide 30 ml 05/14/22 22:11 Magnesium Hydroxide Susp 30 Ml Udc PO DAILY PRN Constipation Morphine Sulfate 4 mg 05/15/22 01:00 05/15/22 05:31 Morphine Sulfate (*Crx) 4 Mg/Ml Inj IV PUSH 4 mg Q3HR PRN Administration Pain Rated 7-10 Ondansetron HCl 4 mg 05/15/22 01:00 05/15/22 18:48 Ondansetron Inj 4 Mg/2 Ml Vial IV PUSH 4 mg Q4H PRN Administration Nausea Ondansetron HCl 4 mg 05/15/22 11:05 Ondansetron Inj 4 Mg/2 Ml Vial IV PUSH ONCE PRN Nausea Oxybutynin Chloride 5 mg 05/15/22 12:46 Oxybutynin Chloride 5 Mg Tablet PO TID PRN Abdominal Cramping Phenazopyridine HCl 200 mg 05/15/22 12:46 05/16/22 08:34 Phenazopyridine Hcl 100 Mg Tablet PO 200 mg TIDWM CHARLENE Administration Trazodone HCl 150 mg 05/15/22 21:00 05/15/22 20:43 Trazodone Hcl 50 Mg Tablet PO 150 mg HS CHARLENE Administration Zolpidem Tartrate 10 mg 05/15/22 12:46 05/15/22 20:49 Zolpidem Tartrate (*Crx) 5 Mg Tablet PO 10 mg HS PRN Administration insomnia Radiology Results: ITS Impressions Abdomen X-Ray 05/14/22 21:45 IMPRESSION: 1. 1.4 cm at the left ureteropelvic junction. Retrograde Pyelogram 05/15/22 19:34 IMPRESSION: 1. Left-sided stone with placement of a left
== END 2022-05-16 13:08 | disposition home or self-care (01) ==
LOC: ANHED 21:53 → ANH2MED 05-15 00:36
PROVIDERS: Emergency Medicine; Nurse Practitioner Family; Urology; Admitting Provider Student in an Organized Health Care Education/Training Program; Emergency Provider Emergency Medicine; PCP Internal Medicine; Visit Provider Nurse Practitioner
PROC: (CPT 52352; principal; 2022-05-15 14:30)
DX: N20.1 Calculus of ureter (principal); G47.00 Insomnia, unspecified; R11.0 Nausea; R51.9 Headache, unspecified; F41.9 Anxiety disorder, unspecified; R10.9 Unspecified abdominal pain; F10.90 Alcohol use, unspecified, uncomplicated; Z20.822 Contact with and (suspected) exposure to COVID-19; R30.0 Dysuria; F43.22 Adjustment disorder with anxiety; E66.3 Overweight; Z68.24 Body mass index [BMI] 24.0-24.9, adult; Z87.442 Personal history of urinary calculi; Z79.899 Other long term (current) drug therapy
CPT/HCPCS: 52005; 52332; 36415; 74018; 74420; 80053; 81001; 85025; 85027; 85610; 87086; 96361; 96365; 96367; 96374; 96375; 96376; 99285; A9270; C1769; C2617; G0378; J0131; J0696; J2250; J2270; J2405; J2704; J3010; J7030; J7120; U0003; U0005

== ENCOUNTER 2022-05-29 01:37 | Day surgery (SDC) | payer OTHER, SELFPAY ==
[2022-05-25 09:40] VITALS: BMI 23.8
--- NOTE | 2022-05-25 09:44 | PC.NURSE ---
Report to the Outpatient Waiting Room, entrance under the green pavilion located off [facility], at time 1215 on date 05/29/22. Planned Procedure Time: 1415. Time changes happen often and if your time is changed the preop area will call you the afternoon before. - You and your visitor will be asked to self-screen and do not enter if you have any COVID symptoms. - Only one visitor is requested with a max of two and NO children visitors are allowed at this time. - The patient visitor may be requested to leave or wait in car when not with patient due to distancing restrictions. - A mask is optional within the hospital. Patients may have clear liquids (water, carbonated beverages, clear teas, apple juice) until 3 hours prior to surgery with a maximum of 20 ounces. - No food from midnight until time of surgery Take the following medications with a SIP of water the morning of surgery: NONE Medications to discontinue per physician: N/A Date to take last dose: N/A Please no make-up, nail indonesian, hairspray, perfume, deodorant, or body powder the day of surgery. No jewelry (including any body piercings) or valuables the day of surgery, leave them at home. Please take a shower or bath the night before, or the morning of, surgery with an antibacterial soap. Wear comfortable, loose fitting clothing. - Jewelry must be removed prior to entering the operating room. Rings and piercings that are not removed may be cut off. - The hospital will not accept responsibility for valuables. - Please leave all valuables, including medications, at home the day of surgery. If you are going home after surgery, a licensed explosives truck driver must drive you home. - NO public transportation without another adult if you receive anesthesia. - We recommend that an adult stay with you for 24 hours following discharge. - We also recommend that you do not drive, make important decision, drink alcoholic beverages, or take any drugs that were not prescribed by your health care provider for at least 24 hours after your discharge time. Follow any additional instructions given to you from your surgeon. If you or anyone in your household have experienced Covid symptoms in the past week, please notify your surgeon or the nurse liaison at the phone number below for possible testing. Telephone instructions given to PT - COY WILL and asked if any additional questions and then verbalized understanding. Patient advised to call surgeon office or pre surgery nurse liaison [phone] if any additional questions.
[2022-05-29] VITALS (13 sets, daily range): BP systolic 122–181; BP diastolic 60–101; PULSE 48–72; RESP 10–20; TEMP 36.5–36.7; O2SAT 94–100
--- NOTE | ~2022-05-29 | XR_ITS ---
XR abdomen/kub 1V 05/29/2022 11:23 Indication: Renal stones. Preop ESWL. Procedure: KUB Comparison: 05/14/2022 Findings: There are is a left internal ureteral stent in expected position. There is a stone in the l eft kidney overlying the proximal coil of the stent. There are cholecystectomy clips. There is a lapa roscopic adjustable gastric band. There are pelvic phleboliths. Nonobstructive bowel gas pattern. Mod erate colonic fecal loading. Impression: 1: Stable left nephrolithiasis with interval placement of left internal ureteral stent. Reviewed, dictated and finalized at location A. IT RATING CHECKER Impression: 1: Stable left nephrolithiasis with interval placement of left internal uretera l stent.
--- NOTE | 2022-05-29 06:46 | WPDHPUPDATE1 ---
History and Physical Update Update Date/Time: 05/29/22 06:46 History and Physical has been reviewed, including an updated exam of the patient. There are NO changes in the patient's condition. Risks, benefits, and alternatives have been discussed and questions answered. Patient agrees to proceed with procedure.
[2022-05-29] MEDS: LACTATED RINGERS 1,000 ML 30 ML IV CONT ×2 (12:00→14:33)
[2022-05-29 12:28] LABS: Prothrombin Time 12.9 Seconds (11.1-14.7)
[2022-05-29 12:30] LABS: Partial Thromboplastin Time 27.4 SECONDS (22.3-36.8)
--- NOTE | 2022-05-29 12:49 | WPDANESEPPF ---
Anes - Initial Pre Proc Eval Procedure: Operation Date: 05/29/22 14:15 Proposed Procedures p Left Extracorporeal Shock Wave Lithotripsy - Bill Pal MD Date/Time: 05/29/22 12:49 Surgeon: Bill Pal MD Pre Op Diagnosis: left ureteral kidney stone Patient Data Age: 57 Gender: F Height: 1.7 m Weight: 70.4 kg Last Vital Signs Temp 36.7 C 05/29/22 12:25 Pulse 55 L 05/29/22 12:25 Resp 16 05/29/22 12:25 BP 124/71 05/29/22 12:25 Pulse Ox 100 05/29/22 12:25 O2 Del Method Room Air 05/29/22 12:25 Allergies Allergy/AdvReac Type Severity Reaction Status Date / Time No Known Allergies Allergy Verified 05/14/22 15:31 Home Medications Medication Instructions Recorded Confirmed Type fluoxetine 10 mg capsule 10 mg PO DAILY #90 caps 08/18/21 05/29/22 Rx trazodone 50 mg tablet 150 mg PO DAILY #90 tabs 11/18/21 05/29/22 Rx zolpidem 10 mg tablet (Ambien) 10 mg PO .qhs PRN insomnia #90 tabs 04/16/22 05/29/22 Rx oxybutynin chloride 5 mg tablet 5 mg PO TID PRN Abdominal Cramping 05/16/22 05/29/22 Rx #30 tabs Laboratory Tests 05/29/22 11:54 PT 12.9 Seconds Seconds (11.1-14.7) INR 1.0 APTT 27.4 SECONDS SECONDS (22.3-36.8) Patient hx anesthesia problems: none Family hx anesthesia problems: none Results Review: All pre-operative results and documents have been reviewed as part of the pre-operative evaluation. FORMERLY [facility] Past Medical History Medical History Adjustment disorder with anxiety Insomnia Renal stone Patient reports having lithotripsy procedures over 17 times. history of uric stones Surgical History Surgical History H/O shoulder surgery (~06/11/21) History of cholecystectomy History of hysterectomy History of laparoscopic adjustable gastric banding Family History Family History Father Hypertension Family history of lung cancer, Onset Age: 75 Mother Hypertension Family history of thyroid disease Diabetes mellitus Family history of rheumatoid arthritis Grandparent Family history of malignant neoplasm of breast, Onset Age: 90 Carcinoma of colon Other Family history of arthritis Family history of malignant neoplasm Family history of premature coronary heart disease Social History Social History Social History: Caffeine-coffee Smoking status: Never smoker Alcohol intake: current Drinks per week: 1 Alcohol use details: RARE Substance use: never Substance use type: does not use Lack of Transportation: No Lack of Food: Never True Current Housing: I Have Housing Concerned About Future Housing: No Difficulty Paying Gas/Electric Bills: No Difficulty Paying for Meds: No Currently Unemployed: No Education: Associate Degree Difficulty w/ Childcare or Family Care: No Living arrangements: with family Spiritual care concerns: No Anes - Eval Final PreProcedure Day of Procedure 05/29/22 12:49 Patient weight: normal Heart: regular rate and rhythm Lungs: clear to auscultation Airway: Mallampati scale class II Neurological: alert and oriented Last oral intake: >/= 8 hours ASA classification: III Emergent: no Anesthetic plan: proceed Anesthesia type and monitoring: general LMA and standard monitoring Results Review: All pre-operative results and documents have been reviewed as part of the pre-operative evaluation. Informed Consent: The patient's anesthetic plan and its attendant risks and benefits were discussed with the patient/family/POA. Questions were solicited and answers provided to the satisfaction of the patient/family/POA.
[2022-05-29] MEDS: ceFAZolin 2 GM/D5W 50 ML 2 GM/50 ML BAG IVPB (12:59)
--- NOTE | 2022-05-29 13:25 | W.PM.PROC2 ---
Procedure Note - Detailed Date of Procedure 05/29/22 Pre-op Diagnosis Left kidney stone Post-op Diagnosis Same Procedure Performed Left ESWL Surgeon Bill Pal MD Anesthesia General Description of Procedure The patient was brought to the operative suite where she was placed in the supine position on the Dornier lithotripsy table. The focal point of the lithotripter was placed at a 14mm left renal pelvic calculus. A total of 2500 shocks were delivered at a power setting of 4. There appeared to be good fragmentation of the stone. The patient tolerated the procedure well and was taken to the recovery room in good condition. Drains No Packing No Pathology None sent Complications No immediate complications Condition Stable
[2022-05-29] MEDS: fentaNYL CITRATE INJ (*CRX) 100 MCG/2 ML VIAL 25 MCG IV PUSH ×6 (13:53→14:24)
[2022-05-29] MEDS: HYDROmorphone HCL INJ (*CRX) 1 MG/ML SYR IV PUSH ×3 (14:30→17:39)
[2022-05-29] MEDS: ONDANSETRON INJ 4 MG/2 ML VIAL IV PUSH (15:08)
[2022-05-29] MEDS: diphenhydrAMINE HCl INJ 50 MG/ML VIAL 25 MG IV PUSH (15:39)
[2022-05-29] MEDS: SCOPOLAMINE 1.5 MG PATCH TRANSDERM (15:40)
[2022-05-29] MEDS: oxyCODONE HCL (*CRX) 5 MG TAB IR PO (16:01)
--- NOTE | 2022-05-29 16:16 | SUR.PHASEII ---
Patient unable to take NSAIDs. She had a Gastric sleeve procedure.
== END 2022-05-29 17:45 | disposition home or self-care (01) ==
PROVIDERS: PCP Internal Medicine; Visit Provider Urology
PROC: (CPT 50590; principal; 2022-05-29 14:15)
DX: N20.0 Calculus of kidney (principal); F43.22 Adjustment disorder with anxiety; G47.00 Insomnia, unspecified
CPT/HCPCS: 50590; 36415; 74018; 85610; 85730; A9270; J0131; J0690; J1100; J1170; J1200; J2250; J2405; J2704; J3010; J7120

== ENCOUNTER 2022-06-15 10:29 | Outpatient (CLI) | payer OTHER, SELFPAY ==
--- NOTE | ~2022-06-15 | XR_ITS ---
Supine and upright views of the abdomen Clinical history: Renal calculus Findings: Bowel gas pattern is nonspecific. No evidence for obstruction or free air. Left ureteral st ent present. Stable calcifications versus bowel contents in the left pelvis. No definite renal stone evident. Lap band present. Osseous structures are intact. Impression: Left ureteral stent. Stone overlying the left renal pelvis on prior exam no longer clearly visualized. Stable calcifications versus bowel content in the left pelvis. Reviewed, dictated and finalized at location [] N YARD DRIER Impression: Left ureteral stent. Stone overlying the left renal pelvis on prior exam no longer clearly visualize d. Stable calcifications versus bowel content in the left pelvis.
== END 2022-06-15 10:30 | disposition home or self-care (01) ==
PROVIDERS: PCP Physician Assistant; Visit Provider Urology
DX: N20.0 Calculus of kidney (principal)
CPT/HCPCS: 74018

== ENCOUNTER 2022-10-01 13:04 | Outpatient (CLI) | payer OTHER, SELFPAY ==
--- NOTE | ~2022-10-01 | DEXA_ITS ---
Bone Density Report Name: COY WILL Age: 57 Sex: Female Ethnicity: White Date of : 1965 Indication: postmenopausal; screening for osteoporosis; parental hip fracture; height loss; hysterectomy; Referring Provider: HEDY CARPENTER Study: Bone densitometry was performed. Exam Date: October 01, 2022 Accession number: [id number] Bone Density: Region BMD T-score Z-score Classification AP Spine(L1-L4) 0.841 -1.9 -0.5 Osteopenia Femoral Neck (Left) 0.525 -2.9 -1.7 Osteoporosis Total Hip (Left) 0.622 -2.6 -1.7 Osteoporosis Femoral Neck (Right) 0.439 -3.7 -2.4 Osteoporosis Total Hip (Right) 0.505 -3.6 -2.7 Osteoporosis Total Hip Mean 0.564 -3.1 -2.2 Osteoporosis World Health Organization criteria for BMD impression classify patients as: Normal (T-score at or above -1.0), Osteopenia (T-score between -1.0 and -2.5), or Osteoporosis (T-score at or below -2.5). 10-year Fracture Risk: FRAX not reported because: Some T-score for Spine Total or Hip Total or Femoral Neck at or below -2.5 Clinical Information Provided by Patient: Parent has had a hip fracture Has the following medical conditions: Hysterectomy Patient maximum height was 67 Menopause Age: 43 No regular weight bearing exercise Drinks caffeinated beverages Onset of menses at age 13 Number of children 1 Impression: The patient has osteoporosis, based on the Right Femoral Neck T-score. The patient has risk factors, including: parental hip fracture. Discussion: HIGH RISK OF FRACTURE. BONE DENSITY IS UNDESIRABLY LOW AT ONE OR MORE SKELETAL SITES, CONSISTENT WITH OSTEOPOROSIS. ALSO, BONE DENSITY IS LOWER THAN EXPECTED FOR AGE AND SEX AT ONE OR MORE SKELETAL SITES; RECOMMEND A DILIGENT SEARCH FOR SECONDARY CAUSES OF BONE LOSS. This patient's lowest T-score meets the World Health Organization's (WHO) criteria for osteoporosis at one or more sites (T-score -2.5 or below). In untreated patients, the risk of osteoporotic fracture increases approximately two-fold for each 1.0 SD decrease in T-score. Low bone density is not the only risk factor for fracture; also consider factors such as patient's age, frailty or poor health, risk of falling, risk of injury, previous osteoporotic fracture, family history of osteoporosis, cigarette smoking, low body weight, etc. Not everyone with low bone mineral density has osteoporosis; osteomalacia and other metabolic bone disorders should also be considered. Patients who have osteoporosis should be evaluated for specific diseases and conditions (secondary causes) that may cause or contribute to bone loss. The [place] [employer] of Clinical Endocrinologists (AACE) and National Osteoporosis Foundation (NOF) recommend pharmacologic intervention for all postmenopausal women whose T-score is in this range. Also, t
== END 2022-10-01 13:05 | disposition home or self-care (01) ==
LOC: ANHIMG 13:05
PROVIDERS: PCP Internal Medicine; Visit Provider Clinical Nurse Specialist
DX: Z78.0 Asymptomatic menopausal state (principal); M85.88 Other specified disorders of bone density and structure, other site; M81.0 Age-related osteoporosis without current pathological fracture
CPT/HCPCS: 77080

== ENCOUNTER → 2022-10-14 15:28 | Outpatient (CLI) | payer OTHER, SELFPAY ==
--- NOTE | ~2022-10-14 | XR_ITS ---
XR femur RT min 2V DATE: 10/14/2022 15:44 INDICATION: Fall 4 months ago. Lateral mid shaft pain TECHNIQUE: AP and lateral views of right femur COMPARISON: None FINDINGS: There is osteopenia. No fracture or dislocation, periosteal reaction or bone destruction of the right femur. Normal alignm ent at the right hip and knee joints. IMPRESSION: Osteopenia Reviewed, dictated and finalized at location B. IMPRESSION: Osteopenia
== END ==
PROVIDERS: PCP Internal Medicine; Visit Provider Clinical Nurse Specialist
DX: M85.851 Other specified disorders of bone density and structure, right thigh (principal)
CPT/HCPCS: 73552

== ENCOUNTER 2022-10-30 11:21 | Outpatient (CLI) | payer OTHER, SELFPAY ==
--- NOTE | ~2022-10-30 | XR_ITS ---
EXAMINATION: XR abdomen/kub 1V DATE: 10/30/2022 11:37 INDICATION: Left ureteral stone. TECHNIQUE: A supine view of the abdomen on 2 radiographs was obtained. COMPARISON: CT abdomen and pelvis 05/14/2022 FINDINGS: There are no dilated loops of bowel. There is a lap band in expected position. Surgical cli ps in the right upper quadrant are likely from cholecystectomy. There are phleboliths in the pelvis. IMPRESSION: 1. No visible urolithiasis. Reviewed, dictated and finalized at location A. IMPRESSION: 1. No visible urolithiasis.
== END 2022-10-30 11:22 | disposition home or self-care (01) ==
LOC: ANHIMG 11:23
PROVIDERS: PCP Internal Medicine; Visit Provider Urology
DX: N20.1 Calculus of ureter (principal)
CPT/HCPCS: 74018

== ENCOUNTER 2023-03-17 11:36 | Emergency (ER) | payer OTHER, SELFPAY ==
--- NOTE | ~2023-03-17 | XR_ITS ---
EXAMINATION: XR wrist RT min 3V INDICATION: Right wrist pain TECHNIQUE: Four views of the right wrist are obtained. COMPARISON: None available FINDINGS: There is advanced osteoarthritis of the triscaphe joint. There is no fracture. Bone alignme nt is normal. The soft tissues are unremarkable. IMPRESSION: 1. Advanced osteoarthritis of the triscaphe joint. Reviewed, dictated and finalized at location B.
[2023-03-17 11:54] VITALS: BP 128/77; PULSE 59; RESP 16; TEMP 36.8; O2SAT 100
--- NOTE | 2023-03-17 12:01 | ED.UPPEXIN ---
HPI - Extremity Injury (Upper) General Chief Complaint: Extremity Injury, Upper Stated Complaint: rt wrist pain Time Seen by Provider: 03/17/23 12:01 Source: patient Mode of arrival: ambulatory Limitations: no limitations History of Present Illness HPI narrative: 57-year-old female presents with complaint of right wrist pain for the past several days. Denies injury. Reports history of osteoporosis. Patient states that she would like x-ray to check for fracture due to weak bones . Patient has not taking any [id number] medications to treat her symptoms. States pain is worse when lifting. Denies doing any type of repetitive motion that may have caused pain. All systems reviewed and negative except as noted above. Related Data Allergies Allergy/AdvReac Type Severity Reaction Status Date / Time No Known Allergies Allergy Verified 02/11/23 08:36 Review of Systems Review of Systems: CONSTITUTIONAL: Denies fever, chills, or sweats. EYES: Denies visual changes, redness, or discharge. ENT: Denies rhinorrhea, congestion, sore throat, or otalgia. CARDIOVASCULAR: Denies chest pain, palpitations, or edema. RESPIRATORY: Denies cough or dyspnea. GASTROINTESTINAL: Denies abdominal pain, nausea, vomiting, or diarrhea. GENITOURINARY: Denies dysuria or hematuria. SKIN: Denies rash or itching. MUSCULOSKELETAL: Denies back pain or myalgia. Reports pain to right wrist. NEUROLOGIC: Denies headache, numbness, or weakness. PSYCHIATRIC: Denies anxiety or depression. All other systems reviewed are negative, except as documented in HPI. FOR[facility]LY [facility], [facility] Past Medical History Medical History (Updated 03/17/23 @ 12:49 by Alycia Nielsen NP) Adjustment disorder with anxiety Ankle fracture, right Encounter to establish care Influenza Insomnia Kidney stone on left side Left ureteral stone Leg pain Nausea Pain in right femur Post-menopausal Renal stone Patient reports having lithotripsy procedures over 17 times. history of uric stones Surgical History Surgical History H/O shoulder surgery (~06/11/21) History of cholecystectomy History of hysterectomy History of laparoscopic adjustable gastric banding Family History Family History Father Hypertension Family history of lung cancer, Onset Age: 75 Mother Hypertension Family history of thyroid disease Diabetes mellitus Family history of rheumatoid arthritis Grandparent Family history of malignant neoplasm of breast, Onset Age: 90 Carcinoma of colon Other Family history of arthritis Family history of malignant neoplasm Family history of premature coronary heart disease Social History Social History Social History: Caffeine-coffee Smoking status: Never smoker Alcohol intake: current Drinks per week: 1 Alcohol use details: RARE Substance use: never Substance use type: does not use Lack of Transportation: No Lack of Food: Never True Current Housing: I Have Housing Concerned About Future Housing: No Difficulty Paying Gas/Electric Bills: No Difficulty Paying for Meds: No Currently Unemployed: No Education: Associate Degree Difficulty w/ Childcare or Family Care: No Living arrangements: with family Spiritual care concerns: No Comments At time of signature, agree with nursing past medical, surgical, social and family history. There is no relevant family history pertinent to the presenting complaint. Exam Narrative: GENERAL: This is a well-nourished, well-developed patient, in no apparent distress. HEAD: normocephalic, atraumatic. EYES: PERRL. Sclera clear/white. Vision is grossly intact. EARS: External ears normal NOSE: External nose normal NECK: Neck supple, non-tender without lymphadenopathy, masses or thyromegaly. CARDIOVASCULAR: Regular rate and rhyth
== END 2023-03-17 13:05 | disposition home or self-care (01) ==
PROVIDERS: Emergency Provider Nurse Practitioner Family; PCP Internal Medicine
DX: M19.031 Primary osteoarthritis, right wrist (principal)
CPT/HCPCS: 73110; 99213; G0463

== ENCOUNTER → 2023-04-19 09:25 | Outpatient (CLI) | payer OTHER, SELFPAY ==
--- NOTE | ~2023-04-19 | XR_ITS ---
Left ankle Technique: AP, oblique, and lateral views were obtained. Clinical History: Status post fall Findings: No acute fracture or dislocation is seen. Osseous alignment is anatomic. Ankle mortise and other visualized joint spaces are preserved. Soft tissues are otherwise unremarkable. Impression: Unremarkable left ankle. Reviewed, dictated and finalized at location . Impression: Unremarkable left ankle.
--- NOTE | ~2023-04-19 | XR_ITS ---
AP and lateral views of the left hip Clinical history: Pain Findings: No acute fracture or dislocation is seen. Osseous alignment is anatomic. Left hip joint and left SI joint are preserved. Soft tissues are unremarkable. Impression: No significant abnormality is seen. Reviewed, dictated and finalized at [facility]. Impression: No significant abnormality is seen.
== END ==
PROVIDERS: PCP Clinical Nurse Specialist; Visit Provider Clinical Nurse Specialist
DX: M25.572 Pain in left ankle and joints of left foot (principal); M25.552 Pain in left hip
CPT/HCPCS: 73502; 73610

== ENCOUNTER 2023-05-04 13:38 | Outpatient (CLI) | payer OTHER, SELFPAY ==
--- NOTE | ~2023-05-04 | MR_ITS ---
MRI of the left hip Clinical history: Pain Technique: Coronal T1-weighted, T2-weighted, and proton-density fat-sat images, and axial T1-weighted and proton-density fat-sat images were acquired through the pelvis. Coronal T2-weighted images and c oronal, axial, and sagittal proton-density fat-sat images were acquired through the left hip. Findings: There is no fracture, avascular necrosis, or transient osteoporosis of either hip. Bone mar row signals in the proximal femora and visualized pelvic bones are unremarkable. Bilateral hip joints are preserved, without significant degenerative change. No joint effusion evident. No definite left acetabular labral tear identified. Visualized musculature about the pelvis and left hip is unremarkable. No muscle atrophy or edema. Vis ualized tendons are intact. No evidence for bursitis. No fluid collection or soft tissue mass seen. IMPRESSION: No significant abnormality seen. Reviewed, dictated and finalized at [facility]. 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
== END 2023-05-04 13:39 | disposition home or self-care (01) ==
PROVIDERS: PCP Clinical Nurse Specialist; Visit Provider Clinical Nurse Specialist
DX: M25.552 Pain in left hip (principal); W19.XXXA Unspecified fall, initial encounter
CPT/HCPCS: 73721

== ENCOUNTER 2023-05-17 13:52 | Emergency (ER) | payer OTHER, SELFPAY ==
[2023-05-17 14:21] VITALS: BP 125/84; PULSE 83; RESP 18; TEMP 36.3; O2SAT 100
--- NOTE | 2023-05-17 14:40 | ED.FEMALEGU ---
HPI - Female Genitourinary General Chief complaint: Urogenital-Female Stated complaint: abdominal pain Time Seen by Provider: 05/17/23 14:35 Source: patient and RN notes reviewed Mode of arrival: ambulatory Limitations: no limitations History of Present Illness HPI Narrative: 58 y/o female with hx renal stones and diverticulitis presented for c/o LLQ abd pain x 4 days. Pain is constant, stabbing. Rates 6-10/10. Endorses nausea and vomiting today, unable to eat today. Fever up to 102. States the car ride bumps causes severe pain, at times she feel she cannot walk due to pain. LBM yesterday. Denies hematemesis or hematochezia, denies urinary symptoms. Related Data Allergies Allergy/AdvReac Type Severity Reaction Status Date / Time No Known Allergies Allergy Verified 05/03/23 13:20 Review of Systems Review of Systems: CONSTITUTIONAL: Endorses fatigue Denies body aches, fever, chills ENT: Denies rhinorrhea, congestion CARDIOVASCULAR: Denies chest pain, palpitations, or edema. RESPIRATORY: Denies cough or dyspnea. GASTROINTESTINAL: Endorses abdominal pain, nausea, vomiting, Denies diarrhea, hematochezia, melena, hematemesis GENITOURINARY: Denies dysuria, hematuria, or CVA tenderness. SKIN: Denies rash, itching, or wounds. MUSCULOSKELETAL: Denies back pain, joint pain, or myalgia. NEUROLOGIC: Denies headache, numbness, tingling, or weakness. All systems reviewed & are unremarkable except as noted in HPI and below PMFSH Past Medical History Medical History Adjustment disorder with anxiety Ankle fracture, right Encounter to establish care Influenza Insomnia Kidney stone on left side Left ureteral stone Leg pain Nausea Pain in right femur Post-menopausal Renal stone Patient reports having lithotripsy procedures over 17 times. history of uric stones Surgical History Surgical History H/O shoulder surgery (~06/11/21) History of cholecystectomy History of hysterectomy History of laparoscopic adjustable gastric banding Hx of parathyroidectomy Family History Family History Father Hypertension Family history of lung cancer, Onset Age: 75 Mother Hypertension Family history of thyroid disease Diabetes mellitus Family history of rheumatoid arthritis Grandparent Family history of malignant neoplasm of breast, Onset Age: 90 Carcinoma of colon Other Family history of arthritis Family history of malignant neoplasm Family history of premature coronary heart disease Social History Social History Social History: Caffeine-coffee Smoking status: Never smoker Alcohol intake: current Drinks per week: 1 Alcohol use details: RARE Substance use: never Substance use type: does not use Lack of Transportation: No Lack of Food: Never True Current Housing: I Have Housing Concerned About Future Housing: No Difficulty Paying Gas/Electric Bills: No Difficulty Paying for Meds: No Currently Unemployed: No Education: Associate Degree Difficulty w/ Childcare or Family Care: No Living arrangements: with family Spiritual care concerns: No Comments At time of signature, I have reviewed and agree with nursing past medical, surgical, social and family history unless otherwise noted. Please see nursing chart for further information. There is no relevant family history pertinent to the presenting complaint Exam Narrative: GENERAL: Well-appearing, and in no acute distress. EYES: EOMI. Conjunctivae normal. ENT: Mucous membranes pink and moist. CHEST: No respiratory distress. Clear to auscultation. HEART: Regular rate and rhythm. No murmur appreciated. Normal peripheral pulses. ABDOMEN: abd soft, nondistended, normal active bowel sounds. Tender abdomen LLQ and mid l
== END 2023-05-17 15:02 | disposition short-term general hospital (02) ==
PROVIDERS: Emergency Provider Nurse Practitioner Family; PCP Clinical Nurse Specialist
DX: R10.32 Left lower quadrant pain (principal)
CPT/HCPCS: 99212; G0463

== ENCOUNTER 2023-05-17 15:21 | Emergency (ER) | payer OTHER, SELFPAY ==
--- NOTE | ~2023-05-17 | CT_ITS ---
EXAMINATION: CT abdomen pelvis w con INDICATION: Left lower quadrant pain TECHNIQUE: Computed tomographic images of the abdomen and pelvis were obtained after the administrati on of 100 cc of Omnipaque 350 intravenous contrast. The dose-length product (DLP) was 547.57 mGy-cm. Automated exposure control and iterative reconstruction technique were employed. COMPARISON: 05/14/2022 FINDINGS: Minimal dependent atelectasis is present in the lung bases. The heart size is normal. The g allbladder is surgically absent. There is mild enlargement of the common bile duct and central intrah epatic ducts which is likely due to post cholecystectomy state. A gastric lap band is noted. The live r, spleen, pancreas, and adrenal glands are normal. Right kidney is unremarkable. Punctate nonobstruc ting stones of the left kidney measure up to 2 mm. There are diverticula of the sigmoid colon. There is diverticulitis at the posterolateral wall of the sigmoid colon. There is edematous stranding of th e perisigmoid fat without evidence of perforation or perisigmoid abscess. The appendix is normal. IMPRESSION: 1. Uncomplicated acute sigmoid diverticulitis. Reviewed, dictated and finalized at location F. E PRUNER
[2023-05-17 15:22] VITALS: BP 148/84; PULSE 77; RESP 16; TEMP 36.8; O2SAT 100
[2023-05-17 16:26] LABS: Basophils Percent Auto 0.3 % (0.2-1.2); Eosinophils Absolute Auto 0.2 K/mm3 (0-0.3); Eosinophils Percent Auto 1.4 % (0-4.4); Hematocrit 43.1 % (37.0-47.0); Hemoglobin 13.9 g/dL (12.0-15.0); Immature Granulocyte Absolute 0.06 K/mm3 (0.00-0.031); Immature Granulocyte Percent A 0.6 % (0-0.5); Lymphocytes Absolute Auto 1.28 K/mm3 (0.9-3.2); Lymphocytes Percent Auto 12.1 % (18.3-44.2); Mean Corpuscular HGB Conc 32.3 g/dl (32-36); Mean Corpuscular Hemoglobin 31.6 pg (26-34); Mean Platelet Volume 10.7 fl (7.4-10.4); Neutrophils Absolute Auto 8.1 K/mm3 (1.3-6.7); Neutrophils Percent Auto 76.6 % (45.5-73.1); Platelet Count Result 287 k/mm3 (150-375); Red Cell Distribution Width 11.5 % (11.5-14.5); White Blood Count 10.6 K/mm3 (4.5-10.0)
[2023-05-17 16:34] LABS: Appearance Urine Cloudy (Clear); Bacteria Urine None Seen /hpf; Bilirubin Urine Negative (Negative); Blood Urine 1+ (Negative); Color Urine Dark Yellow (Yellow); Glucose Urine UA Negative (Negative); Ketones Urine Negative (Negative); Leukocyte Esterase Ur Trace LEU/UL (Negative); Nitrate Urine Negative (Negative); Non Pathogenic Casts 0-2; Protein Urine Negative (Negative); Specific Grav Ur 1.023 (1.001-1.035); Squamous Epithelial Cell Urine None seen /hpf (Few); WBC Urine 0-5 /hpf; pH Urine 6.5 (5.0-9.0)
[2023-05-17 16:35] LABS: Alanine Aminotransferase 10 U/L (6-35); Albumin Level 4.2 g/dL (3.5-5.1); Alkaline Phosphatase 68 U/L (38-126); Anion Gap 8 mmol/L (8-16); Aspartate Amino Transferase 17 U/L (14-36); Bilirubin,Total 0.9 mg/dL (0.2-1.3); Blood Urea Nitrogen 13 mg/dL (7-17); Calcium 10.8 mg/dL (8.4-10.2); Carbon Dioxide 30 mmol/L (22-30); Chloride 101 mmol/L (98-107); Estimated CRCL calculation 69 ml/min; Estimated Glomerular Filt Rate > 60; Glucose 100 mg/dL (65-110); Lipase 98 U/L (23-300); Potassium 3.9 mmol/L (3.4-5.0); Sodium 139 mmol/L (137-145)
[2023-05-17 16:40] LABS: Add Urine Microscopic? YES
[2023-05-17 17:01] VITALS: BP 123/71; PULSE 89; RESP 18; TEMP 36.6; O2SAT 97
--- NOTE | 2023-05-17 17:33 | ED.ABDPAIN ---
HPI - Abdominal Pain General Chief Complaint: Abdominal Pain Stated Complaint: abd pain Time Seen by Provider: 05/17/23 16:13 History of Present Illness HPI narrative: Patient is a 58-year-old female who presents ER with left lower quadrant abdominal pain. Has history of diverticulitis. Reports nighttime fevers. Symptoms ongoing over last 4 days but patient reports a good been going on longer. No diarrhea or sensation constipation. No urinary frequency urgency or dysuria. Pain is sharp at times. No radiation. Related Data Allergies Allergy/AdvReac Type Severity Reaction Status Date / Time No Known Allergies Allergy Verified 05/03/23 13:20 Review of Systems Review of Systems: All systems reviewed & are unremarkable except as noted in HPI and below Constitutional: Constitutional: Denies chills, Denies fatigue and Reports fever(s) ENT: Reports system reviewed and no additional complaints, except as documented Cardiovascular: Cardiovascular: Reports no additional cardiovascular complaints Respiratory: Respiratory: Reports no additional respiratory complaints Gastrointestinal: Gastrointestinal: Reports abdominal pain, Denies constipation, Denies diarrhea, Denies nausea and Denies vomiting Genitourinary: Genitourinary: Reports no additional female genitourinary complaints [facility] Past Medical History Medical History Adjustment disorder with anxiety Ankle fracture, right Encounter to establish care Influenza Insomnia Kidney stone on left side Left ureteral stone Leg pain Nausea Pain in right femur Post-menopausal Renal stone Patient reports having lithotripsy procedures over 17 times. history of uric stones Surgical History Surgical History H/O shoulder surgery (~06/11/21) History of cholecystectomy History of hysterectomy History of laparoscopic adjustable gastric banding Hx of parathyroidectomy Family History Family History Father Hypertension Family history of lung cancer, Onset Age: 75 Mother Hypertension Family history of thyroid disease Diabetes mellitus Family history of rheumatoid arthritis Grandparent Family history of malignant neoplasm of breast, Onset Age: 90 Carcinoma of colon Other Family history of arthritis Family history of malignant neoplasm Family history of premature coronary heart disease Social History Social History Social History: Caffeine-coffee Smoking status: Never smoker Alcohol intake: current Drinks per week: 1 Alcohol use details: RARE Substance use: never Substance use type: does not use Lack of Transportation: No Lack of Food: Never True Current Housing: I Have Housing Concerned About Future Housing: No Difficulty Paying Gas/Electric Bills: No Difficulty Paying for Meds: No Currently Unemployed: No Education: Associate Degree Difficulty w/ Childcare or Family Care: No Living arrangements: with family Spiritual care concerns: No Exam Narrative: GENERAL: Well-appearing, well-nourished, and in no acute distress. HEAD: Normocephalic, atraumatic. ENT: Mucous membranes moist. NECK: Supple. CHEST: Clear to auscultation. No respiratory distress. HEART: Regular rate and rhythm. Normal peripheral pulses. ABDOMEN: Soft, tender palpation left lower quadrant with guarding, nondistended. EXTREMITIES: Normal range of motion. No edema. SKIN: Warm, dry, no rash. NEURO: Alert and oriented x3. PSYCH: Normal mood and affect. Course Course Emergency Course: Patient resting comfortably. Informed of results. Discharge home. Vital Signs Vital signs: Vital Signs Temperature 98.3 F 05/17/23 15:22 Pulse Rate 77 05/17/23 15:22 Respiratory Rate 16 05/17/23 15:22 Blood Pressure 148/84 H
[2023-05-17 17:46] VITALS: BP 146/90; PULSE 67; RESP 18; O2SAT 100
== END 2023-05-17 18:08 | disposition home or self-care (01) ==
PROVIDERS: Emergency Provider Emergency Medicine; PCP Clinical Nurse Specialist
DX: K57.32 Diverticulitis of large intestine without perforation or abscess without bleeding (principal); Z87.442 Personal history of urinary calculi
CPT/HCPCS: 36415; 74177; 80053; 81001; 83690; 85025; 99284; Q9967

== ENCOUNTER 2023-05-19 12:09 | Outpatient (CLI) | payer OTHER, SELFPAY ==
[2023-05-19 12:48] LABS: Anion Gap 10 mmol/L (8-16); Blood Urea Nitrogen 13 mg/dL (7-17); Calcium 9.6 mg/dL (8.4-10.2); Carbon Dioxide 25 mmol/L (22-30); Chloride 101 mmol/L (98-107); Estimated Glomerular Filt Rate > 60; Glucose 89 mg/dL (65-110); Potassium 3.9 mmol/L (3.4-5.0); Sodium 136 mmol/L (137-145)
== END 2023-05-19 12:10 | disposition home or self-care (01) ==
LOC: ANHLAB 12:11
PROVIDERS: PCP Clinical Nurse Specialist; Visit Provider Clinical Nurse Specialist
DX: E89.2 Postprocedural hypoparathyroidism (principal); E83.52 Hypercalcemia
CPT/HCPCS: 36415; 80048

== ENCOUNTER 2023-06-17 13:39 | Outpatient (CLI) | payer OTHER, SELFPAY ==
--- NOTE | ~2023-06-17 | MR_ITS ---
MRI of the brain Clinical History: Dizziness Technique: Axial and sagittal T1-weighted images were acquired. These were followed by axial T2-weigh melecio, diffusion weighted, gradient, and FLAIR images. Following intravenous administration of 15 cc Mu ltiHance gadolinium, T1-weighted fat-sat imaging was performed in the axial and coronal planes. Findings: There is no acute infarct, intracranial hemorrhage, or mass lesion. There are minimal chron ic white matter changes in the periventricular white matter bilaterally. Ventricles and subarachnoid spaces are unremarkable. Orbits are unremarkable. Paranasal sinuses and m astoid air cells are clear. Major intracranial flow voids are intact. Sagittal midline structures are intact. No abnormal postcontrast enhancement identified. IMPRESSION: Minimal chronic microvascular ischemic change, otherwise unremarkable exam. Reviewed, dictated and finalized at location M. [facility]
== END 2023-06-17 13:40 ==
LOC: GOSHIMG 13:40
PROVIDERS: PCP Clinical Nurse Specialist; Visit Provider Clinical Nurse Specialist
DX: R42 Dizziness and giddiness (principal); R29.6 Repeated falls
CPT/HCPCS: 70553; A9577

== ENCOUNTER 2024-01-11 12:13 | Outpatient (CLI) | payer OTHER, SELFPAY ==
--- NOTE | ~2024-01-11 | XR_ITS ---
XR abdomen/kub 1V Ordering provider: OLI Vazquez History: . ROUTINE FOLLOW UP FOR BILATERAL KIDNEY STONES . Comparison: October 30, 2022 FINDINGS: BOWEL: Nonobstructive bowel gas pattern. ORGANOMEGALY: None. SIGNIFICANT PATHOLOGIC CALCIFICATIONS: None. OTHER: Catheter is projected over the abdomen with a port. No free air is seen under the diaphragm. IMPRESSION: NO ACUTE ABDOMINAL FINDINGS. Reviewed, dictated and finalized at location A.
== END 2024-01-11 12:14 ==
PROVIDERS: PCP Internal Medicine; Visit Provider Clinical Nurse Specialist
DX: N20.0 Calculus of kidney (principal)
CPT/HCPCS: 74018

== ENCOUNTER 2025-06-11 16:10 | Outpatient (CLI) | payer OTHER, SELFPAY ==
--- NOTE | ~2025-06-11 | XR_ITS ---
XR lumbar spine 2-3V Indication: M54.16 - Radiculopathy, lumbar region Comparison: None Findings: Mild dextroconvex scoliosis. Mild osteopenia. Grade 1 anterolisthesis of L4 on L5, no acute fracture. Moderate loss of disc height throughout. Soft tissues unremarkable Impression: No acute abnormality. Reviewed, dictated and finalized at location P. [facility] Impression: No acute abnormality.
== END 2025-06-11 16:11 | disposition home or self-care (01) ==
LOC: GOSHIMG 16:10
PROVIDERS: PCP Clinical Nurse Specialist; Visit Provider Clinical Nurse Specialist
DX: M54.16 Radiculopathy, lumbar region (principal)
CPT/HCPCS: 72100

== ENCOUNTER 2025-06-16 10:39 | Outpatient (CLI) | payer OTHER, SELFPAY ==
--- NOTE | ~2025-06-16 | MR_ITS ---
EXAMINATION: MR lumbar spine wo con DATE: 06/16/2025 11:42 INDICATION: Low back pain. TECHNIQUE: Magnetic resonance imaging (MRI) of the lumbar spine was performed without intravenous contrast. Sequences included sagittal T2-weighted FSE, sagittal T2-weighted FS FSE, sagittal T1-weighted FSE, and axial T2-weighted FSE. COMPARISON: Lumbar spine radiographs 06/11/2025 FINDINGS: There is 7 degrees dextrocurvature of thoracolumbar spine. There is 8 mm anterolisthesis of L4 on L5. Vertebral heights are normal. There is mildly decreased disc height at L4-L5 and L5-S1. The distal spinal cord signal intensity is normal. The conus medullaris is at L1. The following disc levels are specifically discussed: L1-L2: The disc is bulging. There is moderate bilateral facet joint osteoarthritis. There is mild bilateral neural foraminal stenosis. There is mild central canal stenosis. L2-L3: The disc is bulging. There is severe bilateral facet joint osteoarthritis. There is mild bilateral neural foraminal stenosis. There is mild central canal stenosis. L3-L4: The disc is bulging. There is severe bilateral facet joint osteoarthritis. There is mild lateral neural foraminal stenosis. There is mild central canal stenosis. L4-L5: There is a central extrusion. There is severe bilateral facet joint osteoarthritis. There is mild bilateral neural foraminal stenosis. There is mild central canal stenosis. L5-S1: There is a central protrusion with annular fissure. There is severe bilateral facet joint osteoarthritis. There is mild bilateral neural foraminal stenosis. There is mild central canal stenosis. IMPRESSION: 1. Mild lumbar spondylosis. Reviewed, dictated and finalized at location E. L[facility] IMPRESSION: 1. Mild lumbar spondylosis.
== END 2025-06-16 10:40 | disposition home or self-care (01) ==
LOC: CHSIMG 10:42
PROVIDERS: PCP Clinical Nurse Specialist; Visit Provider Clinical Nurse Specialist
DX: M54.16 Radiculopathy, lumbar region (principal); M48.061 Spinal stenosis, lumbar region without neurogenic claudication; M47.816 Spondylosis without myelopathy or radiculopathy, lumbar region
CPT/HCPCS: 72148